=== PATIENT | female | born 1960 | race Caucasian/White ===

== ENCOUNTER 2017-09-21 15:57 | Outpatient (CLI) | payer OTHER ==
--- NOTE | 2017-09-23 18:05 | Ultrasound Report ---
EXAM: CAROTID DOPPLER ULTRASOUND EXAM DATE: 09/21/2017 04:39 PM. CLINICAL HISTORY: Occlusion and stenosis, primary hypertension. Left carotid bruit and forgetfulness 9 months. Status post anesthesia procedure. COMPARISON: None. TECHNIQUE: Real-time sonographic vascular imaging was performed by the die repairer trimmer dies through the caroti d arterial system with a linear transducer utilizing color-flow, Doppler flow and spectral analysis. Multiple sales representative church furniture static images were saved for review. FINDINGS: Right: RCCA Prox: PSV 84 cm/sec. RCCA Dist: PSV 59 cm/sec, EDV 20 cm/sec. RECA: PSV 72 cm/sec. R Bulb: PSV 45 cm/sec, EDV 19 cm/sec, ICA/CCA ratio 0.76. MARIXA Prox: PSV 54 cm/sec, EDV 18 cm/sec, ICA/CCA ratio 0.91. MARIXA Mid: PSV 68 cm/sec, EDV 26 cm/sec, ICA/CCA ratio 1.15. MARIXA Dist: PSV 73 cm/sec, EDV 31 cm/sec, ICA/CCA ratio 1.23. RVA: PSV 70 cm/sec. RVA flow direction: Antegrade. Left: LCCA Prox: PSV 89 cm/sec. LCCA Dist: PSV 63 cm/sec, EDV 22 cm/sec. LECA: PSV 67 cm/sec. L Bulb: PSV 59 cm/sec, EDV 21 cm/sec, ICA/CCA ratio 0.93. LICA Prox: PSV 67 cm/sec, EDV 27 cm/sec, ICA/CCA ratio 1.06. LICA Mid: PSV 82 cm/sec, EDV 33 cm/sec, ICA/CCA ratio 1.3. LICA Dist: PSV 80 cm/sec, EDV 35 cm/sec, ICA/CCA ratio 1.2. LVA: PSV 61 cm/sec. LVA flow direction: Antegrade. Other: None. IMPRESSION: No hemodynamically significant stenoses. Validated velocity measurements with angiographic measurements and velocity criteria are extrapolated from diameter data as defined by the Society of Radiologists in Ultrasound Consensus Conference Radi ology 2003; 229;340-346. [facility] Referring Provider Line: [phone] SITE ID: [id number]
== END 2017-09-21 15:58 | disposition home or self-care (01) ==
LOC: DI 15:57
PROVIDERS: ATTEND Family Medicine
DX: R09.89 Other specified symptoms and signs involving the circulatory and respiratory systems (principal); I10 Essential (primary) hypertension; E78.5 Hyperlipidemia, unspecified
CPT/HCPCS: 93880

== ENCOUNTER 2019-04-13 15:43 | Outpatient (CLI) | payer OTHER ==
--- NOTE | 2019-04-14 10:29 | Mammography Report ---
Reason: SCREENING Procedure Date: 04/13/2019 Accession Number: [id number] / [id number] Procedure: [facility] - Screening Mammo Dig Bilat CPT Code: FULL RESULT: EXAM: Screening Mammo Dig Bilat DATE: 04/13/2019 5:35 PM CLINICAL HISTORY: Routine screening TECHNIQUE: (B) - Bilateral CC and MLO views were obtained. COMPARISON: 03/20/2018, 01/28/2017 and 10/06/2014 images from the [facility]. PARENCHYMAL PATTERN: (A) - The breasts demonstrate scattered fibroglandular densities bilaterally. FINDINGS: No significant interval change. 8 mm well-circumscribed dense nodule left upper outer quadrant middle third unchanged. There are no new suspicious masses, calcifications, or areas of distortion. IMPRESSION: Benign findings. BI-RADS category 2. RECOMMENDATION: (ANNUAL) - Recommend routine annual screening mammography. BI-RADS CATEGORY: (2) - Benign Findings. STANDARD QUALIFYING STATEMENTS: 1. This examination was not reviewed with the aid of Computer-Aided Detection (CAD). 2. A negative or benign imaging report should not preclude biopsy if clinically suspicious findings are present. 3. Dense breasts may obscure an underlying neoplasm. 4. This examination was reviewed without the aid of 3D breast imaging (tomosynthesis).
== END 2019-04-13 15:44 | disposition home or self-care (01) ==
LOC: DI 15:43
DX: Z12.31 Encounter for screening mammogram for malignant neoplasm of breast (principal)
CPT/HCPCS: 77067